=== PATIENT | male | born 1970 | race Caucasian/White ===

== ENCOUNTER → 2017-01-24 | Outpatient (CLI) | payer BC | END | disposition home or self-care (01) | LOC: LAB.O 14:26 | PROVIDERS: ATTEND Nurse Practitioner Family | DX: R06.09 Other forms of dyspnea (principal) ==

== ENCOUNTER 2017-04-11 11:09 | Observation (INO) | payer BC ==
[2017-04-11] MEDS ORDERED: HYDROmorphone HCL INJ 2 MG/ML VIAL IV ONE (12:04)
--- NOTE | 2017-04-11 12:28 | RAD ---
EXAM DESCRIPTION: Chest,1 View CLINICAL HISTORY: 46 years Male, chest pain COMPARISON: None. IMPRESSION: Heart size and pulmonary vascularity are within normal limits. There is no airspace consolidation, pleural effusion, or pneumothorax. No acute osseous abnormality. Lower cervical ACDF hardware. Electronically signed by: Todd Paniagua MD 04/11/2017 12:27 PM [employer]
[2017-04-11] MEDS: SODIUM CHLORIDE 0.9% (FLUSH) 10 ML SYG IV PRN ×2 (12:35→17:31)
--- NOTE | 2017-04-11 13:07 | ED.PDOC ---
History of Present Illness - General Chief Complaint: Neuro Symptoms/Deficits Stated Complaint: chest pain Time Seen by Provider: 04/11/17 12:03 Source: patient Exam Limitations: no limitations - History of Present Illness Initial Comments: PT COMES TO THE ED WITH COMPLAINTS OF CONSTANT LEFT SIDED CHEST PAIN X 4 DAYS THAT HE RATES AT 7/10 IN INTENSITY. PT REPORTS BEING DISCHARGED FROM THE HOSPITAL LAST WEEK FOR PNEUMONIA. PT WAS HOSPITALIZED FOR 7 DAYS. PT REPORTS SOME CHEST PAIN WHILE IN THE HOSPITAL AND HAD A CT WITH IV CONTRAST AT THAT TIME WHICH WAS NEGATIVE FOR ANY ACUTE FINDINGS. PT HAS A FAMILY HISTORY OF DVT AND STATES THAT 2 BROTHERS HAVE BEEN DIAGNOSED WITH DVTS IN THE PAST WEEK. PT DENIES EXTREMITY PAIN OR SWELLING. Timing/Duration: 1 week Severity: severe Improving Factors: immobilization, rest Worsening Factors: other - DEEP BREATHING Associated Symptoms: chest pain, cough Allergies/Adverse Reactions: Allergies NO KNOWN ALLERGY Allergy (Verified 04/11/17 11:21) Review of Systems - Review of Systems Constitutional: Denies: chills, fever EENTM: Denies: nose congestion, throat pain Respiratory: States: see HPI, cough. Denies: short of breath Cardiology: States: see HPI, chest pain. Denies: palpitations, syncope Gastrointestinal/Abdominal: Denies: abdominal pain, diarrhea, nausea Musculoskeletal: Denies: back pain, joint pain Skin: Denies: change in color, lesions Neurological: States: paresthesia - CIRCUMFERENTIAL ORAL. Denies: headache Endocrine: States: no symptoms reported Hematologic/Lymphatic: States: no symptoms reported Past Medical History (General) - Patient Medical History Hx Asthma: No Hx of COPD: No Hx Cardiac Disorders: No Hx Pacemaker: No Hx Hypertension: Yes Hx Diabetes: No Hx Other PMH: Yes - PSORIASIS AND PSORIATIC ARTHRITIS Surgical History: other - NECK AND BACK SURGERY - Social History Hx Tobacco Use: No Family Medical History - Family History Brother Hx Family;Other: PE Progress - Progress Progress: 04/11/17 13:50 LABS AND DIAGNOSTIC STUDIES DISCUSSED WITH PATIENT WHO REPORTS NO RELIEF OF PAIN AFTER 1MG IV DILAUDID. PT CONTINUES TO EXPERIENCE MORE NUMBNESS AND TINGLING TO FACE AND EXTREMITIES. VITALS REMAIN UNCHANGED DESPITE THIS. PT RE- ASSURED AND CONTINUES TO BE ANXIOUS. IV ATIVAN ORDERED. DISCUSSED PLAN TO ADMIT FOR FURTHER OBSERVATION AND PT AGREES. - EKG/XRAY/CT EKG: Sinus - @65BPM, NL INTERVALS, NL AXIS, LVH, no ST T wave changes - NO OLD EKG FOR COMPARISON. XRAY: chest - NO ACUTE INFILTRATES OR EFFUSIONS Departure - Departure Clinical Impression: Chest pain Qualifiers: Chest pain type: unspecified Qualified Code(s): R07.9 - Chest pain, unspecified Time of Disposition: 14:37 Disposition: Admit Patient Condition: Fair Departure Forms: ED Discharge - Pt. Copy, Patient Portal Self Enrollment Referrals: Edith Asif NP [Primary Care Provider] - 1-2 Weeks Decision To Admit - Decistion To Admit Decision to Admit Reason: Admit from ER Decision to Admit Date: 04/11/17 - CASE DISCUSSED WITH CHRIS JONAS NP WHO AGREES WITH PLAN TO ADMIT Decision to Admit Time: 14:00
[2017-04-11] MEDS ORDERED: NITROGLYCERIN 0.4 MG 25 EA TAB SL ONE ×2 (14:04→14:07)
--- NOTE | 2017-04-11 15:41 | HP ---
SUPERVISING PHYSICIAN: Salomon Miranda MD CHIEF COMPLAINT: Chest pain. HISTORY OF PRESENT ILLNESS: Mr. Cerna is a 46-year-old, male patient who presented to the Emergency Room today complaining of constant left sided chest pain that had been occurring over the last four days. He rated his pain 7 /10 in intensity. He noted he had recently been discharged within the last week from [facility] having been treated for pneumonia after 7 days of treatment. He reported he did have some chest pains while in the hospital and had a CT with IV contrast at that time which did not show any acute findings. He does have a significant history of DVT within the family as he has had 2 brothers within the recent weeks diagnosed with DVTs. He denied any extremity pain or swelling. The pain in his chest is reproducible, especially worsens with deep cough or deep inhalation. Initial laboratory studies in the Emergency Department showed he had a D-dimer that was less than 200 as well as normal coagulation studies. CBC showed a mild leukocytosis of 11 ,200 with platelet count 433, differential within normal limits. Chemistries showed just a mild hyponatremia with sodium 134 with cardiac enzymes with troponin less than 0.02 and normal CPK. He was hemodynamically stable with vital signs showing initial blood pressure in the Emergency Department 144/89 with heart rate 77, saturation 98% on room air with respirations 22, afebrile at 98.5. EKG in the Emergency Room showed normal sinus rhythm with no ST or T- wave changes. He does have a history of being on OxyContin for chronic back pain and notes his pain level normally on any given day is a 3, but he continues to have pain even with his normal pain medication, which he rates at a 7. Given his chest pains, the patient is now going to be placed in observation for further telemetry and close monitoring and repeat of cardiac enzymes to assist in ruling out acute ischemic cardiac event. The patient is admitted in stable condition. PAST MEDICAL HISTORY: 1. Psoriatic arthritis. 2. Depression. 3. Sleep apnea. 4. Psoriasis. PAST SURGICAL HISTORY: 1. Cervical fusion. 2. Fusion of L4, L5 and S1. 3. Rhinoplasty. HOME MEDICATIONS: 1. OxyContin 120 mg at bedtime. 2. OxyContin 160 mg at noon. 3. OxyContin 160 mg in the morning. 4. Armodafinil 200 mg daily. 5. Methocarbamol 750 mg q.8h. as needed. 6. Clonidine 0.1 mg t.i.d.s a needed. 7. Sertraline 100 mg at bedtime. 8. Trileptal 300 mg b.i.d. ALLERGIES: NO KNOWN DRUG ALLERGIES. FAMILY HISTORY: Positive for DVTs in both his brothers, cardiovascular and there is history of cancers including prostate cancer. SOCIAL HISTORY: The patient lives in [place], [place]. 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 He is . He has smoked cigarettes, but quit in September of 2016. He denies any alcohol usage or illicit drug use. REVIEW OF SYSTEMS: CONSTITUTIONAL: Denies any fevers, chills. HEENT: Denies nasal congestion, sore throat. RESPIRATORY: As noted in history of present illness, cough, but denies shortness of breath. CARDIOVASCULAR: As noted in history of present illness, chest pain. Denies palpitations or syncopal episodes. GASTROINTESTINAL: Denies abdominal pain, diarrhea, constipation, nausea. MUSCULOSKELETAL: Chronic back pain, joint pain for which he takes chronic pain management including opioids. NEUROLOGIC: Denies headaches, syncopal episodes, but notes he has had some paresthesias which include circumferential oral from a mild panic attack in the Emergency Room which resolved prior to admission to the Floor. PHYSICAL EXAMINATION: VITAL SIGNS: Temperature 98.5. Pulse 77. Blood pressure 144/89. Respirations 20. O2 saturation 98% on room air. Admission weight 71.8 kg. GENERAL: Upon admission to the Medical/Surgical Floor, the patient appears to be comfortable and in no acute distress. He is alert and oriented, visiting with his girlfriend. He appears to be well-nourished and well-hydrated. HEENT: Tympanic membranes clear bilaterally. Oropharynx is pink, moist without any lesions. NECK: Supple, nontender with some limited range of motion, but no jugular venous distention noted. CHEST: Lungs clear to auscultation. Palpation of chest wall did elicit some pain as well as deep inspiratory effort, but no rhonchi, wheezing or rales are noted. CARDIOVASCULAR: Regular rate and rhythm without any appreciable murmurs, gallops, or rubs. ABDOMEN: Soft, nontender. Positive bowel sounds. EXTREMITIES: There is no cyanosis, clubbing or edema. NEUROLOGIC: The patient is alert and oriented times three. LABORATORY: CBC shows white count 11,200, hemoglobin 15.8, hematocrit 47.4, platelet count 433,000, differential without left shift. Coagulation studies show normal PT, PT-T and D-dimer. Chemistries showed mild hyponatremia with sodium 134, potassium 4.1, chloride 98, carbon dioxide 28, BUN 12, creatinine 0.97. Initial set of cardiac enzymes showed troponin less than 0.02 with CPK 71. Magnesium 1.8. RADIOLOGY: Chest x-ray, single view, in the Emergency Department per radiologic interpretation showed no acute osseous abnormalities. There was no airspace consolidation, pleural effusions, or pneumothorax. EKG showed normal sinus rhythm without ST or T-wave changes. ASSESSMENT: 1. Chest pain felt to be secondary to recent left sided pneumonia with some underlying pleuritic type chest pains which are reproducible with a need to monitor closely to further rule out any acute ischemic cardiovascular event. 2. Recent history of being treated for pneumonia within the last two weeks with radiographic studies showing no evidence of pneumonia no current exam. 3. Mild leukocytosis, probably secondary to some demargination from pain and recent hospitalization for treatment of pneumonia. 4. Mild electrolyte imbalance to include hyponatremia, likely chronic, with the patient being on Trileptal. 5. Chronic back pain on high dose opioid regimen to include OxyContin. 6. History of psoriatic arthritis. 7. History of psoriasis. 8. History of depression. 9. Sleep apnea. PLAN: The patient will be placed in observation for close cardiac telemetry and repeat of cardiac enzymes to assist in investigation and ruling out of acute myocardial infarction. The patient is being started back on his OxyContin. I gave him a dose of Toradol. He did receive a dose of Dilaudid in the Emergency Department which relieved very minimal pain. He apparently had a mild panic attack in the Emergency Room due to his concern that he might have a pulmonary embolism as family members have recently been diagnosed with DVTs. Dr. Pugh discussed with the patient as well as myself that the D-dimer is negative and therefore his risk for pulmonary embolism was significantly low and he just recently had a CT of the chest. Therefore, at this point, close monitoring was warranted, however, we will hold off on CT of the chest at this point. We will plan to recheck laboratory studies in the morning along with q.6h. cardiac enzymes and EKGs. We will anticipate his length of stay to be one to two days with anticipation of discharge in the morning. I will give him some Toradol tonight to see if this will help relieve his discomfort. We will start the patient on DVT prophylaxis with Lovenox as per protocol. Until then, we will continue to monitor the patient closely and treat appropriately. #[id number] [facility]
[2017-04-11] MEDS ORDERED: MORPHINE SULFATE INJ 10 MG/ML VIAL IV PRN (16:09)
[2017-04-11] MEDS ORDERED: ACETAMINOPHEN 325 MG TAB PO PRN (16:09)
[2017-04-11] MEDS ORDERED: SODIUM CHLORIDE 0.9% (FLUSH) 10 ML SYG IV PRN (16:09)
[2017-04-11] MEDS ORDERED: ASPIRIN (CHEWABLE) 81 MG TAB PO ONE (16:09)
[2017-04-11] MEDS ORDERED: NITROGLYCERIN 0.4 MG 25 EA TAB SL PRN (16:09)
[2017-04-11] MEDS ORDERED: IV SET AND CAP CHANGE INJ INJ SCH (16:30)
--- NOTE | 2017-04-11 16:50 | PCM.CORE ---
Physician DVT/VTE - Nurse DVT Assessment & Total Each Risk Factor Represents 3 Points: Family Hx thrombosis, Medical PT with Hx of [place], CHF, Severe infection/sepsis Each Risk Factor Represents 1 Point: Age 41-60, Hx of smoking past year Each Risk Factor is 1 Point: Serious Lung disease (pnemonia <1month, COPD, emphysema,etc) DVT Assessment Score: 9 - 5 or more Very High Risk Treatments: Early Ambulation *, Sequential Compression Device Pharmacological: Enoxaparin 40mg SQ Daily
[2017-04-11] MEDS ORDERED: METHOCARBAMOL 750 MG TAB PO PRN (16:57)
[2017-04-11] MEDS ORDERED: KETOROLAC TROMETHAMINE INJ 30 MG/ML VIAL IV ONE (16:57)
[2017-04-11] MEDS ORDERED: cloNIDine HCL 0.1 MG TAB PO PRN (16:57)
[2017-04-11] MEDS ORDERED: ASPIRIN TABLET 325 MG TAB ONE (17:21)
[2017-04-11] MEDS: ENOXAPARIN SODIUM 40 MG/0.4 ML SYG SUBCU SCH (17:30)
[2017-04-11] MEDS ORDERED: OXcarbazepine 300 MG TAB PO ONE (19:55)
[2017-04-11] MEDS ORDERED: SERTRALINE HCL 50 MG TAB ONE (19:55)
[2017-04-11] MEDS: SODIUM CHLORIDE 0.9% (FLUSH) 10 ML SYG IV SCH (20:37)
[2017-04-11] MEDS: OXcarbazepine 300 MG TAB PO SCH (20:37)
[2017-04-11] MEDS ORDERED: SERTRALINE HCL 50 MG TAB PO SCH (21:00)
[2017-04-11] MEDS ORDERED: NON-FORMULARY MEDICATION 1 EA MIS (Diphenhydramine Hcl [Benadryl] 50 MG) PO SCH (22:00)
[2017-04-11] MEDS ORDERED: diphenhydrAMINE HCL 25 MG CAP ONE (22:32)
[2017-04-12 06:13] VITALS: BP 144/90; TEMP 98.5
[2017-04-12] MEDS ORDERED: ASPIRIN TABLET 325 MG TAB ONE (07:29)
[2017-04-12] MEDS: OXcarbazepine 300 MG TAB PO SCH (08:59)
[2017-04-12] MEDS ORDERED: ASPIRIN TABLET 325 MG TAB PO SCH (09:00)
[2017-04-12] MEDS: SODIUM CHLORIDE 0.9% (FLUSH) 10 ML SYG IV SCH (09:00)
[2017-04-12] MEDS: ENOXAPARIN SODIUM 40 MG/0.4 ML SYG SUBCU SCH (09:00)
[2017-04-12] MEDS ORDERED: ARMODAFINIL 200 MG PO SCH (09:00)
[2017-04-12] MEDS ORDERED: KETOROLAC TROMETHAMINE INJ 30 MG/ML VIAL IV ONE (10:29)
[2017-04-12] MEDS ORDERED: KETOROLAC TROMETHAMINE INJ 30 MG/ML VIAL ONE (10:32)
[2017-04-12 10:34] VITALS: O2SAT 92
[2017-04-12] MEDS ORDERED: diphenhydrAMINE HCL 25 MG CAP PO SCH (21:00)
--- NOTE | 2017-04-18 10:38 | DS ---
SUPERVISING PHYSICIAN: Salomon Miranda MD DISCHARGE DIAGNOSIS: 1. Chest pain felt to be secondary to recent left sided pneumonia with some underlying pleuritic type chest pains which were reproducible with no note of changes on EKGs or cardiac enzymes to indicate any acute ischemic cardiovascular event. 2. Recent history of being treated for pneumonia within the last two weeks prior to admission with radiographic studies showing no evidence of pneumonia on current admission. 3. Mild leukocytosis, probably secondary to some demargination from pain and recent hospitalization for treatment of pneumonia. 4. Mild electrolyte imbalance to include hyponatremia, likely chronic, with the patient being on Trileptal. 5. Chronic back pain on high dose opioid regimen to include OxyContin. 6. History of psoriatic arthritis. 7. History of psoriasis. 8. History of depression. 9. Sleep apnea. REASON FOR HOSPITALIZATION: Mr. Cerna is a 46-year-old, male patient who presented to the Emergency Room on 04/11/17 complaining of constant left sided chest pain that had been occurring over the past four days. He rated his pain 7/10 in intensity. He noted he had recently been discharged within the last week from [facility] in [place] having been treated for pneumonia after 7 days of treatment. He reported he did have some chest pains while in the hospital and had a CT with IV contrast at that time which did not show any acute findings. He does have a significant history of DVT within the family as he has had 2 brothers within the recent weeks diagnosed with DVTs. He denied any extremity pain or swelling. The pain in his chest was reproducible, especially worsens with deep cough or deep inhalation. Initial laboratory studies in the Emergency Department showed he had a D-dimer that was less than 200 as well as normal coagulation studies. CBC showed a mild leukocytosis of 11,200 with platelet count 433, differential within normal limits. Chemistries showed just a mild hyponatremia with sodium 134 with cardiac enzymes with troponin less than 0.02 and normal CPK. He was hemodynamically stable with vital signs showing initial blood pressure in the Emergency Department 144/89 with heart rate 77, saturation 98% on room air with respirations 22, afebrile at 98.5. EKG in the Emergency Room showed normal sinus rhythm with no ST or T-wave changes. He does have a history of being on OxyContin for chronic back pain and notes his pain level normally on any given day is a 3, but he continues to have pain even with his normal pain medication, which he rates at a 7. Given his chest pains, the patient was placed in observation overnight for further telemetry and close monitoring and repeat of cardiac enzymes to assist in ruling out acute ischemic cardiac event. The patient was admitted in stable condition. LABORATORY White count on admission did show a leukocytosis of 11,200, hemoglobin and hematocrit were stable. At discharge, his white count was 7,100 , hemoglobin 16.6, hematocrit 49.2, platelet count 424,000. Differential was within normal limits. Coagulation studies showed normal PT, PT-T and D-dimer less than 200. Chemistries on admission showed mild hyponatremia of 134, potassium 4.1, BUN 12, creatinine 0.97, calcium 9.4, magnesium 1.8. Liver functions within normal limits. He had 3 sets of troponins which were less than 0.02. Cardiac enzymes as well as CPK were normal and on discharge was 79. At discharge, electrolytes were within normal limits. Lipid panel showed triglycerides 110 with cholesterol 219, LDL 119, HDL 76. RADIOLOGY: Chest x-ray in the Emergency Department prior to admission per radiologic interpretation of a single view chest showed no acute osseous abnormalities. There was no airspace consolidation, pleural effusion or pneumothorax noted. EKG on admission times 3 q.6h. showed normal sinus rhythm with no changes. HOSPITAL COURSE: Mr. Cerna was placed in observation overnight. He was placed on telemetry. He had no abnormality rhythm. His EKG remained unchanged with normal sinus rhythm. His cardiac enzymes remained negative. His pain was reproducible, but was improved with Toradol. He had no recurrence of chest pain other than the ones that were reproducible with deep inspiration and palpation of the chest wall on the left. It was felt that he was clinically stable and not showing any evidence of acute cardiac event or ischemic changes as EKGs were negative for any acute changes, nor were the cardiac enzymes changed from within normal limits. Therefore, it was felt the patient could be discharged home in stable condition for continuation of treatment in the outpatient setting. PLAN: Mr. Cerna was discharged on 04/12/17 with instructions to followup with his primary care provider with Elizabeth Asif at [facility] and to have arrangement for cardiology followup shortly after that. His appointment was at 10 AM. He was started on aspirin 325 mg daily and Mobic 7.5 mg daily, #30. He was cautioned that should he have any abdominal pains or any gastric discomfort to start taking [id number] Protonix, Nexium or other proton pump inhibitor. He was to notify Elizabeth Asif of any changes in his symptoms or concerning symptoms and return to the hospital should he have any return of his chest pains. DIET AT DISCHARGE: Low cholesterol, low fat diet. ACTIVITY: No strenuous exercise until cleared by Elizabeth Asif. CONDITION AT DISCHARGE: Stable and improved. #[id number] [facility]
== END 2017-04-12 10:46 | disposition home or self-care (01) ==
LOC: ER 11:09 → MS 15:40
PROVIDERS: ADMIT Nurse Practitioner Family; ATTEND Nurse Practitioner Family
DX: R07.89 Other chest pain (principal); D72.829 Elevated white blood cell count, unspecified; E87.1 Hypo-osmolality and hyponatremia; E87.8 Other disorders of electrolyte and fluid balance, not elsewhere classified; G89.29 Other chronic pain; L40.50 Arthropathic psoriasis, unspecified; F32.9 Major depressive disorder, single episode, unspecified; G47.30 Sleep apnea, unspecified; Z87.01 Personal history of pneumonia (recurrent); Z79.891 Long term (current) use of opiate analgesic; Z79.899 Other long term (current) drug therapy; Z98.1 Arthrodesis status; Z87.891 Personal history of nicotine dependence
CPT/HCPCS: 36415 ×5; 71010; 80048; 80053; 80061; 82550 ×3; 82553 ×3; 84484 ×3; 85025 ×2; 85379; 85610; 85651; 85730; 93005 ×3; 94760 ×2; 96372 ×2; 96374; 96375 ×2; 96376; 99284; G0378; J1170; J1650 ×2; J1885 ×2; J2060; Q0163